=== PATIENT | male | born 1950 | race Caucasian/White ===

== ENCOUNTER 2017-09-26 10:26 | Inpatient (IN) | payer MEDICARE ==
[2017-09-26] VITALS (21 sets, daily range): BP systolic 92–150; BP diastolic 52–95; PULSE 72–154; RESP 16–24; TEMP 97.8–98.2; O2SAT 94–100
[~2017-09-26] VITALS: Ht 172.7 cm; Wt 83.1 kg
--- NOTE | 2017-09-26 10:51 | PD ---
HPI Chief Complaint: Cardiac Complaint Time Seen by Provider: 10:40 Travel History International Travel<30 days: No Contact w/Intl Traveler<30days: No Traveled to known affect area: No History of Present Illness HPI This patient went to his primary physician for routine follow-up. He was found to be in a flutter at 150 and was sent to the ER. He denies chest pain or shortness of breath. He complained of feeling lightheaded. He did not have syncope. He did not know that his heart rate was fast. He has no history of coronary artery disease or arrhythmia. Usually takes half of an aspirin daily but did not today. Symptoms severity is moderate. Duration is unclear. No alleviating factors. No exacerbating factors. PFSH Social History Alcohol Use: No Tobacco Use: No Substance Use: No Allergies-Medications (Allergen,Severity, Reaction): Coded Allergies: No Known Allergies (Unverified , 09/26/17) Reported Meds & Prescriptions Reported Meds & Active Scripts Active Reported Lisinopril 20 Mg Tab 20 Mg PO DAILY Simvastatin 20 Mg Tab 20 Mg PO DAILY Metformin (Metformin HCl) 500 Mg Tab 500 Mg PO BIDPC Lantus Solostar Pen Inj (Insulin Glargine) 300 Unit/3 Ml Pen 40 Units SQ Review of Systems General / Constitutional: No: Fever Eyes: No: Visual changes HENT: Positive: Lightheadedness, No: Headaches Cardiovascular: Positive: Irregular Rhythm, Tachycardia, No: Chest Pain or Discomfort Respiratory: No: Shortness of Breath Gastrointestinal: No: Abdominal Pain Genitourinary: No: Dysuria Musculoskeletal: No: Pain Skin: No Rash Neurologic: Positive: Dizziness Psychiatric: No: Depression Endocrine: No: Polydipsia Hematologic/Lymphatic: No: Easy Bruising Physical Exam Narrative GENERAL: Well-nourished, well-developed patient in no apparent distress. SKIN: Focused skin assessment reveals no rash and nodules. Skin is Warm and dry. HEAD: Atraumatic. Normocephalic. EYES: Pupils equal and round. No scleral icterus. No injection or drainage. ENT: No nasal bleeding or discharge. Mucous membranes pink and moist. NECK: Trachea midline. No JVD. CARDIOVASCULAR: Irregularly irregular rhythm. No murmur appreciated. Heart rate 150s RESPIRATORY: No accessory muscle use. Clear to auscultation. Breath sounds equal bilaterally. GASTROINTESTINAL: Abdomen soft, non-tender, nondistended. Hepatic and splenic margins not palpable. MUSCULOSKELETAL: No obvious deformities. No clubbing. No cyanosis. No edema. NEUROLOGICAL: Awake and alert. No obvious cranial nerve deficits. Motor grossly within normal limits. Normal speech. PSYCHIATRIC: Appropriate mood and affect; insight and judgment normal. Data Data Last Documented VS Vital Signs Date Time Temp Pulse Resp B/P (MAP) Pulse Ox O2 Delivery O2 Flow Rate FiO2 09/26/17 13:37 136 103/71 09/26/17 13:06 18 97 Room Air 09/26/17 10:50 97.8 Orders Orders Ecg Monitoring (09/26/17 10:46) Blood Pressure (09/26/17 10:46) Iv Access Insert/Monitor (09/26/17 10:46) Oximetry (09/26/17 10:46) Vital Signs (09/26/17 10:46) Diltiazem Inj (Cardizem Inj) (09/26/17 11:00) Sodium Chloride 0.9% Flush (Ns Flush) (09/26/17 11:00) Complete Blood Count With Diff (09/26/17 10:46) Basic Metabolic Panel (Bmp) (09/26/17 10:46) Troponin I (09/26/17 10:46) Ckmb (Isoenzyme) Profile (09/26/17 10:46) Prothrombin Time / Inr (Pt) (09/26/17 10:46) Act Partial Throm Time (Ptt) (09/26/17 10:46) Diltiazem Inj (Cardizem Inj) (09/26/17 12:00) Diltiazem Inj (Cardizem Inj) (09/26/17 13:15) Sodium Chlor 0.9% 1000 Ml Inj (Ns 1000 M (09/26/17 13:15) Admit To Inpatient (09/26/17 ) Vital Signs (Adult) Q4H (09/26/17 13:23) Italian Teacher / Telemetry .CONTINUOUS (09/26/17 13:23) Diet Heart Healthy (09/26/17 Lunch) Sodium Chlor 0.9% 1000 Ml Inj (Ns 1000 M (09/26/17 13:23) Sodium Chloride 0.9% Flush (Ns Flush) (09/26/17 13:30) Sodium Chloride 0.9% Flush (Ns Flush) (09/26/17 21:00) Ondansetron Inj (Zofran Inj) (09/26/17 14:00) Comprehensive Metabolic Panel (09/27/17 06:00) Complete Blood Count With Diff (09/27/17 06:00) Troponin I (09/26/17 17:00) Troponin I (09/26/17 23:00) Enoxaparin Inj (Lovenox Inj) (09/26/17 14:00) Scd Bilateral/Knee High SARAH.BID (09/26/17 13:23) Tramadol (Ultram) (09/26/17 14:00) Tramadol (Ultram) (09/26/17 14:00) Naloxone Inj (Narcan Inj) (09/26/17 13:30) Magnesium Hydroxide Liq (Milk Of Magnesi (09/26/17 14:00) Inpatient Certification (09/26/17 ) Consult Cardiology (09/26/17 ) Echo 2d Limited (09/26/17 13:26) (Hub Use Only)Inp Phy Cons/Ref (09/26/17 ) Admit Order (Ed Use Only) (09/26/17 13:51) Labs Laboratory Tests Test 09/26/17 10:45 White Blood Count 6.6 TH/MM3 Red Blood Count 4.39 MIL/MM3 Hemoglobin 14.0 GM/DL Hematocrit 42.2 % Mean Corpuscular Volume 96.2 FL Mean Corpuscular Hemoglobin 31.8 PG Mean Corpuscular Hemoglobin Concent 33.1 % Red Cell Distribution Width 13.7 % Platelet Count 206 TH/MM3 Mean Platelet Volume 8.3 FL Neutrophils (%) (Auto) 70.7 % Lymphocytes (%) (Auto) 18.4 % Monocytes (%) (Auto) 8.3 % Eosinophils (%) (Auto) 1.8 % Basophils (%) (Auto) 0.8 % Neutrophils # (Auto) 4.7 TH/MM3 Lymphocytes # (Auto) 1.2 TH/MM3 Monocytes # (Auto) 0.5 TH/MM3 Eosinophils # (Auto) 0.1 TH/MM3 Basophils # (Auto) 0.1 TH/MM3 CBC Comment DIFF FINAL Differential Comment Prothrombin Time 10.0 SEC Prothromb Time International Ratio 1.0 RATIO Activated Partial Thromboplast Time 25.7 SEC Blood Urea Nitrogen 24 MG/DL Creatinine 1.50 MG/DL Random Glucose 231 MG/DL Calcium Level 9.6 MG/DL Sodium Level 134 MEQ/L Potassium Level 5.0 MEQ/L Chloride Level 100 MEQ/L Carbon Dioxide Level 25.1 MEQ/L Anion Gap 9 MEQ/L Estimat Glomerular Filtration Rate 46 ML/MIN Total Creatine Kinase 68 U/L Troponin I LESS THAN 0.02 NG/ML MDM Medical Decision Making Medical Screen Exam Complete: Yes Emergency Medical Condition: Yes Medical Record Reviewed: Yes Differential Diagnosis Atrial flutter, atrial fibrillation, SVT, sinus tachycardia Narrative Course I have reviewed the patient's electronic medical record. Reviewed his paperwork sent from the doctor's office. This includes recent lab studies and an EKG IV placed Extended cardiac monitoring reveals atrial flutter at 150 I reviewed his EKG which shows atrial flutter at 150 I gave him 20 mg IV Cardizem for rate control Lab studies sent Lab studies are normal 1 Cardizem dose did not do anything to his rate Gave him a second 20 mg dose Brought his heart rate into the 130s Started Cardizem drip He will require admission for new onset of a flutter with RVR now on Cardizem drip I reviewed with the hospitalist Dr. Almonte Critical Care Narrative Aggregate critical care time was 36 minutes. Time to perform other separately billable procedures was not included in the critical care time. My time did not include minutes spent treating any other patients simultaneously or on activities that did not directly contribute to the patient's treatment. The services I provided to this patient were to treat and/or prevent clinically significant deterioration that could result in: Cardiopulmonary arrest, cardiogenic shock I provided critical care services requiring my management, as noted below: Chart data review, documentation time, medication orders and management, vital sign assessments/reviewing monitor data, ordering and reviewing lab tests, ordering and interpreting/reviewing x-rays and diagnostic studies, care of the patient and discussion of the patient with the admitting physicians. Diagnosis Primary Impression: New onset atrial flutter Additional Impressions: Atrial flutter with rapid ventricular response Diabetes 1.5, managed as type 1 Admitting Information Admitting Physician Requests: Vijay Pham MD Sep 26, 2017 10:51
[2017-09-26] MEDS ORDERED: SODIUM CHLORIDE 0.9% FLUSH 10 ML FLUSH IV FLUSH PRN ×2 (11:00→13:30)
[2017-09-26] MEDS ORDERED: DILTIAZEM HCL 25 MG/5 ML VIAL IV PUSH ONE (11:00)
[2017-09-26 11:17] LABS: AUTOMATED NEUTROPHIL # 4.7 TH/MM3 (1.8-7.7); BASOPHIL # 0.1 TH/MM3 (0-0.2); BASOPHIL % 0.8 % (0.0-2.0); EOSINOPHIL # 0.1 TH/MM3 (0-0.4); EOSINOPHIL % 1.8 % (0.0-4.0); HEMATOCRIT 42.2 % (39.0-51.0); LYMPH % 18.4 % (9.0-44.0); LYMPHOCYTE # 1.2 TH/MM3 (1.0-4.8); MEAN CELL VOLUME 96.2 FL (80.0-100.0); MEAN CORPUSCULAR HEMOGLOBIN 31.8 PG (27.0-34.0); MEAN CORPUSCULAR HGB CONC 33.1 % (32.0-36.0); MEAN PLATELET VOLUME 8.3 FL (7.0-11.0); MONO % 8.3 % (0.0-8.0); MONOCYTE # 0.5 TH/MM3 (0-0.9); NEUT % 70.7 % (16.0-70.0); PLATELET COUNT 206 TH/MM3 (150-450); RED BLOOD COUNT 4.39 MIL/MM3 (4.50-5.90); RED CELL DISTRIBUTION WIDTH 13.7 % (11.6-17.2); WHITE BLOOD COUNT 6.6 TH/MM3 (4.0-11.0)
[2017-09-26] MEDS ORDERED: METF500T PO (11:22)
[2017-09-26] MEDS ORDERED: SIMV20TA PO (11:22)
[2017-09-26] MEDS ORDERED: LANTINJ SQ (11:22)
[2017-09-26] MEDS ORDERED: LISI-515 PO (11:22)
[2017-09-26 11:29] LABS: CHLORIDE 100 MEQ/L (98-107); SODIUM (NA) 134 MEQ/L (136-145)
[2017-09-26 11:33] LABS: BICARBONATE 25.1 MEQ/L (21.0-32.0); CALCIUM 9.6 MG/DL (8.5-10.1); GLUCOSE,RANDOM 231 MG/DL (74-106)
[2017-09-26 11:37] LABS: BLOOD UREA NITROGEN 24 MG/DL (7-18); GLOMERULAR FILTRATION RATE 46 ML/MIN (>89)
[2017-09-26 11:41] LABS: TROPONIN I LESS THAN 0.02 NG/ML (0.02-0.05)
[2017-09-26] MEDS ORDERED: DILTIAZEM HCL 25 MG/5 ML VIAL IV ONE (12:00)
[2017-09-26] MEDS ORDERED: SODIUM CHLOR 0.9% 1000 ML INJ 1,000 ML IV ONE (13:15)
[2017-09-26] MEDS ORDERED: NALOXONE HCL 0.4 MG/ML AMP IV PUSH PRN (13:30)
[2017-09-26] MEDS: DILTIAZEM INJ 125 MG in SODIUM CHLORIDE 0.9% INJ 100 ML IV PRN ×2 (13:37→21:30)
[2017-09-26] MEDS ORDERED: MAGNESIUM HYDROXIDE SUSP 30 ML CUP PO PRN (14:00)
[2017-09-26] MEDS ORDERED: ENOXAPARIN SODIUM 40 MG/0.4 ML SYRINGE SQ SCH (14:00)
[2017-09-26] MEDS ORDERED: ONDANSETRON HCL 4 MG/2 ML VIAL IVP PRN (14:00)
[2017-09-26] MEDS ORDERED: traMADol HCL 50 MG TAB PO PRN ×2 (14:00)
[2017-09-26] MEDS: SODIUM CHLOR 0.9% 1000 ML INJ 1,000 ML IV SCH (14:21)
--- NOTE | 2017-09-26 15:59 | HHI.HP ---
[facility] Primary Care Physician Paolo Holm DO Admission Diagnosis new onset aflutter with RVR Diagnoses: Travel History International Travel<30 Days: No Contact w/Intl Traveler <30 Da: No Traveled to Known Affected Are: No History of Present Illness Mr. Pichardo is a 67-year-old male. He has not had any symptoms of was sent here by his primary care doctor after being found to have a heart rate of 150. EKG was done in the office and he was seen to be in atrial flutter. ER evaluation confirms heart rate in the 150s in atrial flutter. He has been given diltiazem bolus which dropped his heart rate down to the 130s. She is currently on IV diltiazem drip and continues to have heart rate in the 130s when seen. At baseline he has diabetes mellitus type 2. He has no prior history or known history of atrial fibrillation or atrial flutter. No other medical conditions. No fevers or illness. No exposure to stimulants such as excessive caffeine or cocaine. No heavy drinking. Review of Systems Constitutional: DENIES: Fever, Chills, Night Sweats Eyes: DENIES: Blurred vision, Diplopia, Eye inflammation, Eye pain Ears, nose, mouth, throat: DENIES: Hearing loss, Vertigo, Nasal discharge Respiratory: DENIES: Cough, Wheezing, Shortness of breath Cardiovascular: DENIES: Chest pain, Palpitations, Syncope Gastrointestinal: DENIES: Abdominal pain, Black stools, Bloody stools, Constipation Musculoskeletal: DENIES: Joint pain, Muscle aches, Stiffness, Joint Swelling Integumentary: DENIES: Abnormal pigmentation, Nail changes, Pruritus, Rash Hematologic/lymphatic: DENIES: Bruising, Lymphadenopathy Immunologic/allergic: DENIES: Eczema, Urticaria Neurologic: DENIES: Abnormal gait, Headache, Paresthesias Psychiatric: DENIES: Anxiety, Confusion, Hallucinations Past Family Social History Past Medical History Diabetes mellitus type 2 Past Surgical History Cholecystectomy Appendectomy Rx surgery Reported Medications Reported Meds & Active Scripts Active Reported Lisinopril 20 Mg Tab 20 Mg PO DAILY Simvastatin 20 Mg Tab 20 Mg PO DAILY Metformin (Metformin HCl) 500 Mg Tab 500 Mg PO BIDPC Lantus Solostar Pen Inj (Insulin Glargine) 300 Unit/3 Ml Pen 40 Units SQ Allergies: Coded Allergies: No Known Allergies (Unverified , 09/26/17) Active Ordered Medications Administered Medications Medications (Trade) Dose Ordered Sig/Chantelle Route PRN Reason Start Time Stop Time Status Last Admin Dose Admin Diltiazem HCl 125 mg/Sodium Chloride 125 ml @ 5 mls/hr TITRATE PRN IV Tachycardia 09/26/17 13:15 09/26/17 13:37 Sodium Chloride 1,000 ml @ 83 mls/hr Q12H3M IV 09/26/17 13:23 09/26/17 14:21 Enoxaparin Sodium (Lovenox Inj) 40 mg Q24H SQ 09/26/17 14:00 09/26/17 14:04 Family History Pancreatic cancer in mother Congestive heart failure and father Social History Occasional alcohol use No smoking No illicit drug abuse Physical Exam Vital Signs Vital Signs Date Time Temp Pulse Resp B/P (MAP) Pulse Ox O2 Delivery O2 Flow Rate FiO2 09/26/17 15:09 138 16 121/72 (88) 98 09/26/17 14:40 136 121/85 09/26/17 14:37 136 17 121/85 (97) 98 Room Air 09/26/17 14:10 134 120/75 09/26/17 14:08 134 18 120/75 (90) 96 Room Air 09/26/17 13:37 136 103/71 09/26/17 13:06 140 18 117/66 (83) 97 Room Air 09/26/17 12:35 94 18 107/52 (70) 100 Room Air 09/26/17 12:07 134 18 120/78 (92) 96 Room Air 09/26/17 11:41 136 18 119/73 (88) 96 Room Air 09/26/17 11:17 135 18 128/69 (88) 96 Room Air 09/26/17 11:09 Room Air 09/26/17 11:05 18 96 Room Air 09/26/17 11:05 120/72 (88) 09/26/17 11:04 154 18 120/72 (88) 96 Room Air 09/26/17 10:50 97.8 153 18 150/95 (113) 94 Physical Exam GENERAL: NAD, A&Ox3 HEAD: Normocephalic. NECK: Supple, trachea midline. No lymphadenopathy. EYES: No scleral icterus. No injection or drainage. CARDIOVASCULAR: Tachycardic rate and patterned rhythm without murmurs, gallops, or rubs. RESPIRATORY: Breath sounds equal bilaterally. No accessory muscle use. GASTROINTESTINAL: Abdomen soft, non-tender, nondistended. MUSCULOSKELETAL: No cyanosis, or edema. SKIN: Warm and dry. NEURO: No focal neurological deficitis. Laboratory Laboratory Tests Test 09/26/17 10:45 White Blood Count 6.6 Red Blood Count 4.39 Hemoglobin 14.0 Hematocrit 42.2 Mean Corpuscular Volume 96.2 Mean Corpuscular Hemoglobin 31.8 Mean Corpuscular Hemoglobin Concent 33.1 Red Cell Distribution Width 13.7 Platelet Count 206 Mean Platelet Volume 8.3 Neutrophils (%) (Auto) 70.7 Lymphocytes (%) (Auto) 18.4 Monocytes (%) (Auto) 8.3 Eosinophils (%) (Auto) 1.8 Basophils (%) (Auto) 0.8 Neutrophils # (Auto) 4.7 Lymphocytes # (Auto) 1.2 Monocytes # (Auto) 0.5 Eosinophils # (Auto) 0.1 Basophils # (Auto) 0.1 CBC Comment DIFF FINAL Differential Comment Prothrombin Time 10.0 Prothromb Time International Ratio 1.0 Activated Partial Thromboplast Time 25.7 Blood Urea Nitrogen 24 Creatinine 1.50 Random Glucose 231 Calcium Level 9.6 Sodium Level 134 Potassium Level 5.0 Chloride Level 100 Carbon Dioxide Level 25.1 Anion Gap 9 Estimat Glomerular Filtration Rate 46 Total Creatine Kinase 68 Troponin I LESS THAN 0.02 Result Diagram: 09/26/17 1045 09/26/17 1045 Caprini VTE Risk Assessment Caprini VTE Risk Assessment: Mod/High Risk (score >= 2) Caprini Risk Assessment Model Point Value = 1 Point Value = 2 Point Value = 3 Point Value = 5 Age 41-60 Minor surgery BMI > 25 kg/m2 Swollen legs Varicose veins or History of unexplained or recurrent spontaneous Oral contraceptives or hormone replacement Sepsis (< 1 month) Serious lung disease, including pneumonia (< 1 month) Abnormal pulmonary function Acute myocardial infarction Congestive heart failure (< 1 month) History of inflammatory bowel disease Medical patient at bed rest Age 61-74 Arthroscopic surgery Major open surgery (> 45 min) Laparoscopic surgery (> 45 min) Malignancy Confined to bed (> 72 hours) Immobilizing plaster cast Central venous access Age >= 75 History of VTE Family history of VTE Factor V Leiden Prothrombin [id number] Lupus anticoagulant Anticardiolipin antibodies Elevated serum homocysteine Heparin-induced thrombocytopenia Other congenital or acquired thrombophilia Stroke (< 1 month) Elective arthroplasty Hip, pelvis, or leg fracture Acute spinal cord injury (< 1 month) Prophylaxis Regimen Total Risk Factor Score Risk Level Prophylaxis Regimen 0-1 Low Early ambulation 2 Moderate Order ONE of the following: *Sequential Compression Device (SCD) *Heparin 5000 units SQ BID 3-4 Higher Order ONE of the following medications: *Heparin 5000 units SQ TID *Enoxaparin/Lovenox 40 mg SQ daily (WT < 150 kg, CrCl > 30 mL/min) *Enoxaparin/Lovenox 30 mg SQ daily (WT < 150 kg, CrCl > 10-29 mL/min) *Enoxaparin/Lovenox 30 mg SQ BID (WT < 150 kg, CrCl > 30 mL/min) AND/OR *Sequential Compression Device (SCD) 5 or more Highest Order ONE of the following medications: *Heparin 5000 units SQ TID (Preferred with Epidurals) *Enoxaparin/Lovenox 40 mg SQ daily (WT < 150 kg, CrCl > 30 mL/min) *Enoxaparin/Lovenox 30 mg SQ daily (WT < 150 kg, CrCl > 10-29 mL/min) *Enoxaparin/Lovenox 30 mg SQ BID (WT < 150 kg, CrCl > 30 mL/min) AND *Sequential Compression Device (SCD) Assessment and Plan Problem List: (1) Diabetes 1.5, managed as type 1 ICD Code: E10.9 - Type 1 diabetes mellitus without complications Status: Acute (2) New onset atrial flutter ICD Code: I48.92 - Unspecified atrial flutter Status: Acute (3) Atrial flutter with rapid ventricular response ICD Code: I48.92 - Unspecified atrial flutter Status: Acute Assessment and Plan 67-year-old male admitted secondary to a flutter with RVR Atrial flutter RVR Admit to ICU for diltiazem IV Continue Diltiazem IV for now Current neurology consulted Follow troponins Follow on telemetry Echocardiogram Diabetes mellitus type 2/1.5 Follow blood sugars Insulin sliding scale Diabetic diet DVT prophylaxis Lovenox Physician Certification 2 Midnight Certification Type: Admission for Inpatient Services Order for Inpatient Services The services are ordered in accordance with Medicare regulations or non- Medicare payer requirements, as applicable. In the case of services not specified as inpatient-only, they are appropriately provided as inpatient services in accordance with the 2-midnight benchmark. Estimated LOS (days): 3 days is the estimated time the patient will need to remain in the hospital, assuming treatment plan goals are met and no additional complications. Post-Hospital Plan: Home Mendez Almonte MD Sep 26, 2017 15:59
[2017-09-26] MEDS ORDERED: DEXTROSE 50% IN WATER 50 ML VIAL(D50) IV PUSH PRN (16:00)
[2017-09-26] MEDS ORDERED: GLUCAGON 1 MG/ML VIAL OTHER PRN (16:00)
[2017-09-26] MEDS: INSULIN ASPART SUPPLEMENTAL SCALE SQ SCH ×2 (17:00→21:28)
[2017-09-26] MEDS: SODIUM CHLORIDE 0.9% FLUSH 10 ML FLUSH IV FLUSH SCH (19:45)
[2017-09-27] VITALS (44 sets, daily range): BP systolic 84–142; BP diastolic 43–72; PULSE 62–136; RESP 10–33; TEMP 97.5–98.7; O2SAT 92–96
[2017-09-27] MEDS: SODIUM CHLOR 0.9% 1000 ML INJ 1,000 ML IV SCH ×2 (02:26→14:18)
[2017-09-27 05:13] LABS: BASOPHIL # 0.1 TH/MM3 (0-0.2); BASOPHIL % 0.8 % (0.0-2.0); EOSINOPHIL # 0.2 TH/MM3 (0-0.4); HEMATOCRIT 38.8 % (39.0-51.0); HEMOGLOBIN 12.9 GM/DL (13.0-17.0); LYMPH % 19.7 % (9.0-44.0); LYMPHOCYTE # 1.7 TH/MM3 (1.0-4.8); MEAN CELL VOLUME 95.8 FL (80.0-100.0); MEAN CORPUSCULAR HEMOGLOBIN 31.9 PG (27.0-34.0); MEAN CORPUSCULAR HGB CONC 33.3 % (32.0-36.0); MEAN PLATELET VOLUME 8.4 FL (7.0-11.0); MONO % 7.4 % (0.0-8.0); MONOCYTE # 0.6 TH/MM3 (0-0.9); NEUT % 70.1 % (16.0-70.0); PLATELET COUNT 199 TH/MM3 (150-450); RED BLOOD COUNT 4.05 MIL/MM3 (4.50-5.90); RED CELL DISTRIBUTION WIDTH 14.3 % (11.6-17.2); WHITE BLOOD COUNT 8.6 TH/MM3 (4.0-11.0)
[2017-09-27 05:23] LABS: CHLORIDE 106 MEQ/L (98-107); SODIUM (NA) 138 MEQ/L (136-145)
[2017-09-27 05:58] LABS: ALBUMIN 3.2 GM/DL (3.4-5.0); ALKALINE PHOSPHATASE 57 U/L (45-117); ALT (GPT) 18 U/L (12-78); AST (GOT) 12 U/L (15-37); BICARBONATE 24.9 MEQ/L (21.0-32.0); BLOOD UREA NITROGEN 24 MG/DL (7-18); CALCIUM 8.3 MG/DL (8.5-10.1); GLOMERULAR FILTRATION RATE 55 ML/MIN (>89); GLUCOSE,RANDOM 129 MG/DL (74-106); TOTAL BILIRUBIN ADULT 0.5 MG/DL (0.2-1.0); TOTAL PROTEIN 6.5 GM/DL (6.4-8.2)
--- NOTE | 2017-09-27 07:52 | PD.CONS ---
HPI Consult Requested By Primary Care Physician Paolo Holm DO History of Present Illness 67-year-old male with a past medical history of DM, HLD, HTN, CKD 3 who presented for new onset atrial flutter. The patient went to his routine every 3 month PCP visit yesterday. The pulse ox showed his heart rate was 150. An EKG showed atrial flutter with RVR. The patient has been completely asymptomatic. He denies any chest pain, shortness of breath, palpitations, lightheadedness, fatigue, exertional dyspnea, leg swelling. He was started on Cardizem drip which has been maximized overnight and heart rate remains around 120. Review of Systems Negative except as stated in history of present illness Past Family Social History Allergies: Coded Allergies: No Known Allergies (Unverified , 09/26/17) Past Medical History Diabetes mellitus Hypertension Hyperlipidemia Chronic kidney disease stage III Past Surgical History Cholecystectomy Appendectomy Reported Medications Reported Meds & Active Scripts Active Reported Lisinopril 20 Mg Tab 20 Mg PO DAILY Simvastatin 20 Mg Tab 20 Mg PO DAILY Metformin (Metformin HCl) 500 Mg Tab 500 Mg PO BIDPC Lantus Solostar Pen Inj (Insulin Glargine) 300 Unit/3 Ml Pen 40 Units SQ Active Ordered Medications Current Medications Medications (Trade) Dose Ordered Sig/Chantelle Route Start Time Stop Time Status Last Admin (NS Flush) 2 ml UNSCH PRN IV FLUSH 09/26/17 11:00 Diltiazem HCl 125 mg/Sodium Chloride 125 ml @ 5 mls/hr TITRATE PRN IV 09/26/17 13:15 09/26/17 21:30 Sodium Chloride 1,000 ml @ 83 mls/hr Q12H3M IV 09/26/17 13:23 09/27/17 02:26 (NS Flush) 2 ml UNSCH PRN IV FLUSH 09/26/17 13:30 (NS Flush) 2 ml BID IV FLUSH 09/26/17 21:00 (Zofran Inj) 4 mg Q6H PRN IVP 09/26/17 14:00 (Lovenox Inj) 40 mg Q24H SQ 09/26/17 14:00 09/26/17 14:04 (Ultram) 50 mg Q4H PRN PO 09/26/17 14:00 (Ultram) 100 mg Q4H PRN PO 09/26/17 14:00 (Narcan Inj) 0.4 mg UNSCH PRN IV PUSH 09/26/17 13:30 (Milk Of Magnesia Liq) 30 ml Q12HR PRN PO 09/26/17 14:00 (D50w (Vial) Inj) 50 ml UNSCH PRN IV PUSH 09/26/17 16:00 (Glucagon Inj) 1 mg UNSCH PRN OTHER 09/26/17 16:00 (NovoLOG SUPPLEMENTAL SCALE) 1 ACHS SLIDING SCALE SQ 09/26/17 17:00 09/26/17 21:28 Family History Pancreatic cancer in mother Congestive heart failure in father Social History Occasional alcohol use No smoking No illicit drug abuse Physical Exam Vital Signs Vital Signs Date Time Temp Pulse Resp B/P (MAP) Pulse Ox O2 Delivery O2 Flow Rate FiO2 09/27/17 06:00 132 16 99/66 (77) 09/27/17 06:00 133 09/27/17 05:00 118 22 100/64 (76) 09/27/17 04:12 97.7 134 24 95/65 (75) 96 09/27/17 04:00 132 09/27/17 04:00 133 95/65 09/27/17 03:00 134 92/58 09/27/17 02:00 135 09/27/17 02:00 135 107/62 09/27/17 02:00 136 21 107/62 (77) 09/27/17 01:00 104 20 93/56 (68) 09/27/17 00:07 85 09/27/17 00:00 98.6 90 21 92/54 (67) 95 09/27/17 00:00 90 92/54 09/26/17 23:00 90 21 109/52 (71) 09/26/17 22:00 82 09/26/17 22:00 82 23 92/55 (67) 09/26/17 21:31 76 21 100/53 (69) 09/26/17 21:30 85 100/53 09/26/17 21:02 72 23 92/53 (66) 09/26/17 21:00 76 92/53 09/26/17 20:00 98.2 90 23 92/56 (68) 09/26/17 20:00 90 09/26/17 20:00 90 92/56 09/26/17 19:00 136 24 128/71 (90) 98 09/26/17 18:39 138 128/79 09/26/17 18:00 122 09/26/17 17:52 97.9 92 17 118/68 (85) 97 09/26/17 17:38 09/26/17 17:03 110 18 112/64 (80) 97 Room Air 09/26/17 16:06 137 17 123/80 (94) 97 Room Air 09/26/17 15:09 138 16 121/72 (88) 98 09/26/17 14:40 136 121/85 09/26/17 14:37 136 17 121/85 (97) 98 Room Air 09/26/17 14:10 134 120/75 09/26/17 14:08 134 18 120/75 (90) 96 Room Air 09/26/17 13:37 136 103/71 09/26/17 13:06 140 18 117/66 (83) 97 Room Air 09/26/17 12:35 94 18 107/52 (70) 100 Room Air 09/26/17 12:07 134 18 120/78 (92) 96 Room Air 09/26/17 11:41 136 18 119/73 (88) 96 Room Air 09/26/17 11:17 135 18 128/69 (88) 96 Room Air 09/26/17 11:09 Room Air 09/26/17 11:05 18 96 Room Air 09/26/17 11:05 120/72 (88) 09/26/17 11:04 154 18 120/72 (88) 96 Room Air 09/26/17 10:50 97.8 153 18 150/95 (113) 94 Physical Exam GENERAL: Well-developed well-nourished. In no acute distress. NECK: No carotid bruits. No JVD. CARDIOVASCULAR: Tachycardic regular rate and rhythm. No murmur appreciated. RESPIRATORY: No accessory muscle use. Clear to auscultation. Breath sounds equal bilaterally. MUSCULOSKELETAL: No clubbing or cyanosis. No edema. NEUROLOGICAL: Awake and alert. Normal speech. Laboratory Laboratory Tests Test 09/26/17 10:45 09/26/17 18:15 09/26/17 22:30 09/27/17 04:20 White Blood Count 6.6 8.6 Red Blood Count 4.39 4.05 Hemoglobin 14.0 12.9 Hematocrit 42.2 38.8 Mean Corpuscular Volume 96.2 95.8 Mean Corpuscular Hemoglobin 31.8 31.9 Mean Corpuscular Hemoglobin Concent 33.1 33.3 Red Cell Distribution Width 13.7 14.3 Platelet Count 206 199 Mean Platelet Volume 8.3 8.4 Neutrophils (%) (Auto) 70.7 70.1 Lymphocytes (%) (Auto) 18.4 19.7 Monocytes (%) (Auto) 8.3 7.4 Eosinophils (%) (Auto) 1.8 2.0 Basophils (%) (Auto) 0.8 0.8 Neutrophils # (Auto) 4.7 6.0 Lymphocytes # (Auto) 1.2 1.7 Monocytes # (Auto) 0.5 0.6 Eosinophils # (Auto) 0.1 0.2 Basophils # (Auto) 0.1 0.1 CBC Comment DIFF FINAL DIFF FINAL Differential Comment Prothrombin Time 10.0 Prothromb Time International Ratio 1.0 Activated Partial Thromboplast Time 25.7 Blood Urea Nitrogen 24 24 Creatinine 1.50 1.30 Random Glucose 231 129 Calcium Level 9.6 8.3 Sodium Level 134 138 Potassium Level 5.0 4.7 Chloride Level 100 106 Carbon Dioxide Level 25.1 24.9 Anion Gap 9 7 Estimat Glomerular Filtration Rate 46 55 Total Creatine Kinase 68 Troponin I LESS THAN 0.02 LESS THAN 0.02 LESS THAN 0.02 Total Protein 6.5 Albumin 3.2 Alkaline Phosphatase 57 Aspartate Amino Transf (AST/SGOT) 12 Alanine Aminotransferase (ALT/SGPT) 18 Total Bilirubin 0.5 Result Diagram: 09/27/17 0420 09/27/17 0420 Assessment and Plan Assessment and Plan 67-year-old male with a past medical history of DM, HLD, HTN, CKD 3 who presented for new onset atrial flutter. The patient went to his routine every 3 month PCP visit and the pulse ox showed his heart rate was 150. An EKG showed atrial flutter with RVR. The patient has been completely asymptomatic. New-onset atrial flutter with RVR: Change Cardizem GTT to oral Cardizem every 6 hours. IV digoxin loading today, digoxin level in a.m., start oral digoxin tomorrow. Echocardiogram. Chadsvasc 3 for age, diabetes, and hypertension, recommend initiating anticoagulation. Discussed Condition With Pt, RN, Cory Guzman Sep 27, 2017 07:52
[2017-09-27] MEDS: SODIUM CHLORIDE 0.9% FLUSH 10 ML FLUSH IV FLUSH SCH ×2 (08:07→19:38)
[2017-09-27] MEDS: APIXABAN 5 MG TABLET PO SCH ×2 (08:07→21:28)
[2017-09-27] MEDS: DILTIAZEM HCL 60 MG TAB PO SCH ×4 (08:07→23:17)
[2017-09-27] MEDS: DIGOXIN 0.5 MG/2 ML VIAL IV PUSH SCH ×2 (08:08→12:00)
[2017-09-27] MEDS: INSULIN ASPART SUPPLEMENTAL SCALE SQ SCH ×4 (08:18→21:28)
--- NOTE | 2017-09-27 11:43 | ECHRPT ---
Indication: atrial fib CONCLUSIONS The left ventricular systolic function is hsaimtdr-gt-nrwqjwz reduced with an estimated ejection fra ction in the range of 35-40%. Wall thickness is normal. Normal left ventricular size. Trace mitral valve regurgitation. Aortic valve sclerosis is present. There is mild tricuspid valve regurgitation. The estimated pulmonary arterial pressure is 36.6 mmHg. BP: / HR: Rhythm: Atrial fibrillation MEASUREMENTS (Male / Female) Normal Values Technical Quality:Good 2D ECHO LV Diastolic Diameter PLAX 4.2 cm 4.2 - 5.9 / 3.9 - 5.3 cm LV Systolic Diameter PLAX 3.1 cm IVS Diastolic Thickness 0.9 cm 0.6 - 1.0 / 0.6 - 0.9 cm LVPW Diastolic Thickness 0.9 cm 0.6 - 1.0 / 0.6 - 0.9 cm LV Relative Wall Thickness 0.4 RV Internal Dim ED PLAX 3.2 cm LVOT Diameter 2.0 cm LA Systolic Diameter LX 4.0 cm 3.0 - 4.0 / 2.7 - 3.8 cm LV Ejection Fraction MOD BP 43.0 % >= 55 % LV Ejection Fraction MOD 4C 36.6 % LV Ejection Fraction 4C AL 37.4 % LV Ejection Fraction MOD 2C 51.1 % LV Ejection Fraction 2C AL 50.7 % M-MODE Aortic Root Diameter MM 2.5 cm LA Systolic Diameter MM 3.6 cm LA Ao Ratio MM 1.4 AV Cusp Separation MM 2.0 cm DOPPLER AV Peak Velocity 122.0 cm/s AV Peak Gradient 6.0 mmHg LVOT Peak Velocity 76.5 cm/s LVOT Peak Gradient 2.3 mmHg AV Area Cont Eq pk 2.0 cm MV Area PHT 4.7 cm LV E' Septal Velocity 3.5 cm/s TR Peak Velocity 258.0 cm/s TR Peak Gradient 26.6 mmHg Right Atrial Pressure 10.0 mmHg Pulmonary Artery Systolic Pressu 36.6 mmHg Right Ventricular Systolic Press 36.6 mmHg PV Peak Velocity 59.7 cm/s PV Peak Gradient 1.4 mmHg FINDINGS LEFT VENTRICLE The left ventricular systolic function is ebmfsaoi-mg-pchewbx reduced with an estimated ejection fra ction in the range of 35-40%. Wall thickness is normal. Normal left ventricular size. RIGHT VENTRICLE Normal right ventricular size and systolic function. LEFT ATRIUM The left atrial size is normal. RIGHT ATRIUM The right atrial size is normal. ATRIAL SEPTUM Normal atrial septal thickness without atrial level shunting by limited color doppler interrogation. AORTA The aortic root and proximal ascending aorta are normal in size on limited imaging. MITRAL VALVE Structurally normal mitral valve. Trace mitral valve regurgitation. AORTIC VALVE Trileaflet aortic valve. Aortic valve sclerosis is present. TRICUSPID VALVE Structurally normal tricuspid valve. There is mild tricuspid valve regurgitation. The estimated pulmonary arterial pressure is 36.6 mmHg. PULMONARY VALVE No pulmonary valve regurgitation or stenosis. VESSELS The inferior vena cava is normal in size. PERICARDIUM No pericardial effusion. Femi Cai MD, FACC (Electronically Signed) Final Date:27 September 2017 11:42
--- NOTE | 2017-09-27 15:31 | HHI.PR ---
Subjective Remarks Not much response to diltiazem overnight. Digoxin is out of this morning by cardiology team. When I see the patient is afternoon he's having rate controlled but still remains in atrial flutter. She remains asymptomatic. Objective Vital Signs Date Time Temp Pulse Resp B/P (MAP) Pulse Ox O2 Delivery O2 Flow Rate FiO2 09/27/17 14:47 62 26 101/54 (70) 95 09/27/17 14:44 62 26 94/52 (66) 95 09/27/17 14:38 64 31 84/43 (57) 94 09/27/17 14:30 62 33 94/48 (63) 93 09/27/17 14:00 66 09/27/17 14:00 66 21 100/49 (66) 94 09/27/17 13:00 84 26 110/66 (81) 09/27/17 12:00 90 09/27/17 12:00 97.8 96 23 122/56 (78) 94 09/27/17 11:00 74 24 99/67 (78) 95 09/27/17 10:00 66 18 93/57 (69) 96 09/27/17 10:00 64 09/27/17 09:47 74 19 86/51 (63) 95 09/27/17 09:32 70 20 84/56 (65) 95 09/27/17 09:21 76 21 92/48 (63) 92 09/27/17 09:17 84 24 97/47 (64) 94 09/27/17 09:10 98 19 103/53 (70) 93 09/27/17 09:06 90 30 88/59 (69) 09/27/17 09:00 120 09/27/17 08:45 132 20 111/64 (80) 09/27/17 08:15 68 21 105/66 (79) 09/27/17 08:13 70 21 114/72 (86) 09/27/17 08:00 98.0 132 10 106/70 (82) 09/27/17 08:00 132 09/27/17 07:00 132 09/27/17 07:00 132 16 106/66 (79) 09/27/17 06:00 132 16 99/66 (77) 09/27/17 06:00 133 09/27/17 05:00 118 22 100/64 (76) 09/27/17 04:12 97.7 134 24 95/65 (75) 96 09/27/17 04:00 132 09/27/17 04:00 133 95/65 09/27/17 03:00 134 92/58 09/27/17 02:00 135 09/27/17 02:00 135 107/62 09/27/17 02:00 136 21 107/62 (77) 09/27/17 01:00 104 20 93/56 (68) 09/27/17 00:07 85 09/27/17 00:00 98.6 90 21 92/54 (67) 95 09/27/17 00:00 90 92/54 09/26/17 23:00 90 21 109/52 (71) 09/26/17 22:00 82 09/26/17 22:00 82 23 92/55 (67) 09/26/17 21:31 76 21 100/53 (69) 09/26/17 21:30 85 100/53 09/26/17 21:02 72 23 92/53 (66) 09/26/17 21:00 76 92/53 09/26/17 20:00 98.2 90 23 92/56 (68) 09/26/17 20:00 90 09/26/17 20:00 90 92/56 09/26/17 19:00 136 24 128/71 (90) 98 09/26/17 18:39 138 128/79 09/26/17 18:00 122 09/26/17 17:52 97.9 92 17 118/68 (85) 97 09/26/17 17:38 09/26/17 17:03 110 18 112/64 (80) 97 Room Air 09/26/17 16:06 137 17 123/80 (94) 97 Room Air I/O 09/26/17 09/26/17 09/26/17 09/27/17 09/27/17 09/27/17 07:00 15:00 23:00 07:00 15:00 23:00 Intake Total 1000 ml 445 ml 1000 ml 200 ml Output Total 600 ml 1300 ml Balance 1000 ml -155 ml 1000 ml -1100 ml Intake Oral 320 ml 200 ml IV Total 1000 ml 125 ml 1000 ml Output Urine Total 600 ml 1300 ml # Voids 1 3 # Bowel Movements 0 Result Diagram: 09/27/1741909/27/17419 Objective Remarks GENERAL: NAD, A&Ox3 HEAD: Normocephalic. NECK: Supple, trachea midline. No lymphadenopathy. EYES: No scleral icterus. No injection or drainage. CARDIOVASCULAR: Irregularly irregular rhythm without murmurs, gallops, or rubs. RESPIRATORY: Breath sounds equal bilaterally. No accessory muscle use. GASTROINTESTINAL: Abdomen soft, non-tender, nondistended. MUSCULOSKELETAL: No cyanosis, or edema. SKIN: Warm and dry. NEURO: No focal neurological deficitis. A/P Problem List: (1) Atrial flutter with rapid ventricular response ICD Code: I48.92 - Unspecified atrial flutter Status: Acute (2) Diabetes 1.5, managed as type 1 ICD Code: E10.9 - Type 1 diabetes mellitus without complications Status: Acute (3) New onset atrial flutter ICD Code: I48.92 - Unspecified atrial flutter Status: Acute Assessment and Plan 67-year-old male admitted secondary to a flutter with RVR Atrial flutter RVR Weaned to by mouth diltiazem Digoxin loading started Patient is now rate controlled Cardiology following Troponin evaluation within normal limits. Follow on telemetry Echocardiogram shows an EF of 35-40%. Diabetes mellitus type 2/1.5 Follow blood sugars Insulin sliding scale Diabetic diet DVT prophylaxis Mendez Phoenix MD Sep 27, 2017 15:31
[2017-09-27] MEDS ORDERED: DIGOXIN 0.5 MG/2 ML VIAL IV PUSH ONE (19:15)
--- NOTE | 2017-09-27 20:39 | EKG ---
Date Performed: 09/26/2017 Time Performed: 10:28:39 PTAGE: 67 years EKG: ATRIAL FLUTTER/TACHYCARDIA WITH RAPID VENTRICULAR RESPONSE ABNORMAL ECG NO PREVIOUS TRACING DOCTOR: Linnette Woods Interpretating Date/Time 09/27/2017 20:38:55
[2017-09-28] VITALS (14 sets, daily range): BP systolic 116–141; BP diastolic 62–89; PULSE 66–138; RESP 11–28; TEMP 97.9–98; O2SAT 94–95
[2017-09-28] MEDS: SODIUM CHLOR 0.9% 1000 ML INJ 1,000 ML IV SCH ×2 (01:43→13:35)
[2017-09-28] MEDS: DILTIAZEM HCL 60 MG TAB PO SCH ×3 (04:37→18:00)
[2017-09-28 05:46] LABS: BASOPHIL # 0.1 TH/MM3 (0-0.2); BASOPHIL % 0.9 % (0.0-2.0); EOSINOPHIL # 0.2 TH/MM3 (0-0.4); EOSINOPHIL % 1.9 % (0.0-4.0); HEMATOCRIT 37.2 % (39.0-51.0); HEMOGLOBIN 13.1 GM/DL (13.0-17.0); LYMPH % 17.5 % (9.0-44.0); LYMPHOCYTE # 1.4 TH/MM3 (1.0-4.8); MEAN CELL VOLUME 95.6 FL (80.0-100.0); MEAN CORPUSCULAR HEMOGLOBIN 33.7 PG (27.0-34.0); MEAN CORPUSCULAR HGB CONC 35.2 % (32.0-36.0); MEAN PLATELET VOLUME 8.3 FL (7.0-11.0); MONO % 6.7 % (0.0-8.0); MONOCYTE # 0.5 TH/MM3 (0-0.9); PLATELET COUNT 173 TH/MM3 (150-450); RED BLOOD COUNT 3.89 MIL/MM3 (4.50-5.90); RED CELL DISTRIBUTION WIDTH 14.5 % (11.6-17.2); WHITE BLOOD COUNT 8.2 TH/MM3 (4.0-11.0)
[2017-09-28 05:55] LABS: CHLORIDE 106 MEQ/L (98-107); SODIUM (NA) 138 MEQ/L (136-145)
[2017-09-28 06:01] LABS: BICARBONATE 25.1 MEQ/L (21.0-32.0); BLOOD UREA NITROGEN 19 MG/DL (7-18); GLUCOSE,RANDOM 153 MG/DL (74-106)
[2017-09-28 06:04] LABS: ALT (GPT) 14 U/L (12-78); AST (GOT) 15 U/L (15-37); GLOMERULAR FILTRATION RATE 55 ML/MIN (>89)
[2017-09-28 06:05] LABS: TOTAL BILIRUBIN ADULT 0.5 MG/DL (0.2-1.0); TOTAL PROTEIN 6.4 GM/DL (6.4-8.2)
[2017-09-28 06:07] LABS: ALKALINE PHOSPHATASE 53 U/L (45-117)
[2017-09-28 06:42] LABS: DIGOXIN 1.4 NG/ML (0.8-2.0)
[2017-09-28] MEDS: INSULIN ASPART SUPPLEMENTAL SCALE SQ SCH ×4 (08:00→22:04)
--- NOTE | 2017-09-28 08:19 | PD.CARD.PN ---
Subjective Subjective Remarks Heart rate currently 130s. Heart rate was better controlled yesterday afternoon on 60 mg Cardizem, however BP was down to 84/43 and Cardizem was decreased to 30 mg. Patient remains asymptomatic. (Cory Montesinos) Objective Medications Current Medications Medications (Trade) Dose Ordered Sig/Chantelle Route Start Time Stop Time Status Last Admin (NS Flush) 2 ml UNSCH PRN IV FLUSH 09/26/17 11:00 Diltiazem HCl 125 mg/Sodium Chloride 125 ml @ 5 mls/hr TITRATE PRN IV 09/26/17 13:15 09/26/17 21:30 Sodium Chloride 1,000 ml @ 83 mls/hr Q12H3M IV 09/26/17 13:23 09/28/17 01:43 (NS Flush) 2 ml UNSCH PRN IV FLUSH 09/26/17 13:30 (NS Flush) 2 ml BID IV FLUSH 09/26/17 21:00 09/27/17 19:38 (Zofran Inj) 4 mg Q6H PRN IVP 09/26/17 14:00 (Ultram) 50 mg Q4H PRN PO 09/26/17 14:00 (Ultram) 100 mg Q4H PRN PO 09/26/17 14:00 (Narcan Inj) 0.4 mg UNSCH PRN IV PUSH 09/26/17 13:30 (Milk Of Magnesia Liq) 30 ml Q12HR PRN PO 09/26/17 14:00 (D50w (Vial) Inj) 50 ml UNSCH PRN IV PUSH 09/26/17 16:00 (Glucagon Inj) 1 mg UNSCH PRN OTHER 09/26/17 16:00 (NovoLOG SUPPLEMENTAL SCALE) 1 ACHS SLIDING SCALE SQ 09/26/17 17:00 09/27/17 21:28 (Lanoxin) 0.125 mg DAILY PO 09/28/17 09:00 (Eliquis) 5 mg BID PO 09/27/17 09:00 09/27/17 21:28 (Cardizem) 30 mg Q6HR PO 09/27/17 18:00 09/28/17 04:37 Vital Signs / I&O Vital Signs Date Time Temp Pulse Resp B/P (MAP) Pulse Ox O2 Delivery O2 Flow Rate FiO2 09/28/17 04:31 97.9 132 20 117/68 (84) 94 09/28/17 00:00 66 16 09/27/17 23:17 97.8 104 20 111/58 (75) 95 09/27/17 21:16 88 09/27/17 21:00 88 22 09/27/17 20:00 118 26 09/27/17 19:41 134 09/27/17 19:40 72 22 101/53 (69) 09/27/17 19:37 97.5 134 27 119/70 (86) 95 09/27/17 19:17 134 29 119/67 (84) 09/27/17 19:02 134 25 108/60 (76) 09/27/17 18:49 132 32 113/63 (80) 95 09/27/17 18:32 132 22 119/60 (79) 95 09/27/17 18:17 80 25 108/58 (75) 95 09/27/17 18:02 132 29 142/71 (94) 96 09/27/17 17:00 82 18 119/60 (79) 94 09/27/17 16:00 98.7 76 24 99/61 (74) 94 09/27/17 14:47 62 26 101/54 (70) 95 09/27/17 14:44 62 26 94/52 (66) 95 09/27/17 14:38 64 31 84/43 (57) 94 09/27/17 14:30 62 33 94/48 (63) 93 09/27/17 14:00 66 09/27/17 14:00 66 21 100/49 (66) 94 09/27/17 13:00 84 26 110/66 (81) 09/27/17 12:00 90 09/27/17 12:00 97.8 96 23 122/56 (78) 94 09/27/17 11:00 74 24 99/67 (78) 95 09/27/17 10:00 66 18 93/57 (69) 96 09/27/17 10:00 64 09/27/17 09:47 74 19 86/51 (63) 95 09/27/17 09:32 70 20 84/56 (65) 95 09/27/17 09:21 76 21 92/48 (63) 92 09/27/17 09:17 84 24 97/47 (64) 94 09/27/17 09:10 98 19 103/53 (70) 93 09/27/17 09:06 90 30 88/59 (69) 09/27/17 09:00 120 09/27/17 08:45 132 20 111/64 (80) 09/27/17 08:15 68 21 105/66 (79) 09/27/17 08:13 70 21 114/72 (86) I/O 09/27/17 09/27/17 09/27/17 09/28/17 09/28/17 09/28/17 07:00 15:00 23:00 07:00 15:00 23:00 Intake Total 1000 ml 200 ml 960 ml 2200 ml Output Total 1300 ml 1400 ml 1350 ml Balance 1000 ml -1100 ml -440 ml 850 ml Intake Oral 200 ml 960 ml 200 ml IV Total 1000 ml 2000 ml Output Urine Total 1300 ml 1400 ml 1350 ml # Voids 3 2 1 # Bowel Movements 0 0 0 Physical Exam GENERAL: Well-developed well-nourished. In no acute distress. NECK: No carotid bruits. No JVD. CARDIOVASCULAR: Tachycardic irregular rate and rhythm. No murmur appreciated. RESPIRATORY: No accessory muscle use. Clear to auscultation. Breath sounds equal bilaterally. MUSCULOSKELETAL: No clubbing or cyanosis. No edema. NEUROLOGICAL: Awake and alert. Normal speech. Laboratory Laboratory Tests Test 09/28/17 05:10 White Blood Count 8.2 TH/MM3 Red Blood Count 3.89 MIL/MM3 Hemoglobin 13.1 GM/DL Hematocrit 37.2 % Mean Corpuscular Volume 95.6 FL Mean Corpuscular Hemoglobin 33.7 PG Mean Corpuscular Hemoglobin Concent 35.2 % Red Cell Distribution Width 14.5 % Platelet Count 173 TH/MM3 Mean Platelet Volume 8.3 FL Neutrophils (%) (Auto) 73.0 % Lymphocytes (%) (Auto) 17.5 % Monocytes (%) (Auto) 6.7 % Eosinophils (%) (Auto) 1.9 % Basophils (%) (Auto) 0.9 % Neutrophils # (Auto) 6.0 TH/MM3 Lymphocytes # (Auto) 1.4 TH/MM3 Monocytes # (Auto) 0.5 TH/MM3 Eosinophils # (Auto) 0.2 TH/MM3 Basophils # (Auto) 0.1 TH/MM3 CBC Comment DIFF FINAL Differential Comment Blood Urea Nitrogen 19 MG/DL Creatinine 1.30 MG/DL Random Glucose 153 MG/DL Total Protein 6.4 GM/DL Albumin 3.0 GM/DL Calcium Level 8.0 MG/DL Alkaline Phosphatase 53 U/L Aspartate Amino Transf (AST/SGOT) 15 U/L Alanine Aminotransferase (ALT/SGPT) 14 U/L Total Bilirubin 0.5 MG/DL Sodium Level 138 MEQ/L Potassium Level 4.5 MEQ/L Chloride Level 106 MEQ/L Carbon Dioxide Level 25.1 MEQ/L Anion Gap 7 MEQ/L Estimat Glomerular Filtration Rate 55 ML/MIN Digoxin Level 1.4 NG/ML (Cory Montesinos) Assessment and Plan Assessment and Plan 67-year-old male with a past medical history of DM, HLD, HTN, CKD 3 who presented for new onset atrial flutter. The patient went to his routine every 3 month PCP visit and the pulse ox showed his heart rate was 150. An EKG showed atrial flutter with RVR. The patient has been completely asymptomatic. New-onset atrial flutter with RVR: On oral diltiazem and digoxin. Chadsvasc 3 for age, diabetes, and hypertension, recommend initiating anticoagulation. At this point, the patient would most benefit from ablation, however no electrophysiology is currently available in [facility], would consider transfer for ablation Cardiomyopathy: EF 35-40%. New-onset, suspect rate related. No clinical signs of CHF. 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 He would be a good candidate for afib ablation hold oral anticoagulation start lovenox instead consider YESENIA/DCC transfer to [facility] main can coordinate EP eval as outpatient unless unable to convert NPO p MN (Femi Cai MD) Cory Montesinos Sep 28, 2017 08:19 Femi Cai MD Sep 28, 2017 09:08
[2017-09-28] MEDS ORDERED: DIGOXIN 0.125 MG TAB PO SCH (09:00)
[2017-09-28] MEDS: APIXABAN 5 MG TABLET PO SCH (09:00)
[2017-09-28] MEDS: SODIUM CHLORIDE 0.9% FLUSH 10 ML FLUSH IV FLUSH SCH ×2 (09:00→22:08)
[2017-09-28] MEDS: ENOXAPARIN SODIUM 80 MG/0.8 ML SYRINGE SQ SCH ×2 (10:00→22:01)
--- NOTE | 2017-09-28 15:04 | HHI.PR ---
Subjective Remarks Atrial flutter has returned. Heart rate is approximately 130 bpm. Patient has no new complaints. Case discussed with cardiology. Attempt at cardioversion is planned. Patient will transfer to [facility] for this. Objective Vital Signs Date Time Temp Pulse Resp B/P (MAP) Pulse Ox O2 Delivery O2 Flow Rate FiO2 09/28/17 12:08 136 19 129/89 (102) 09/28/17 12:00 136 28 09/28/17 10:00 134 22 09/28/17 09:00 132 18 09/28/17 08:00 130 131/73 (92) 09/28/17 08:00 90 09/28/17 04:31 97.9 132 20 117/68 (84) 94 09/28/17 00:00 66 16 09/27/17 23:17 97.8 104 20 111/58 (75) 95 09/27/17 21:16 88 09/27/17 21:00 88 22 09/27/17 20:00 118 26 09/27/17 19:41 134 09/27/17 19:40 72 22 101/53 (69) 09/27/17 19:37 97.5 134 27 119/70 (86) 95 09/27/17 19:17 134 29 119/67 (84) 09/27/17 19:02 134 25 108/60 (76) 09/27/17 18:49 132 32 113/63 (80) 95 09/27/17 18:32 132 22 119/60 (79) 95 09/27/17 18:17 80 25 108/58 (75) 95 09/27/17 18:02 132 29 142/71 (94) 96 09/27/17 17:00 82 18 119/60 (79) 94 09/27/17 16:00 98.7 76 24 99/61 (74) 94 I/O 09/27/17 09/27/17 09/27/17 09/28/17 09/28/17 09/28/17 07:00 15:00 23:00 07:00 15:00 23:00 Intake Total 1000 ml 200 ml 960 ml 2200 ml Output Total 1300 ml 1400 ml 1350 ml Balance 1000 ml -1100 ml -440 ml 850 ml Intake Oral 200 ml 960 ml 200 ml IV Total 1000 ml 2000 ml Output Urine Total 1300 ml 1400 ml 1350 ml # Voids 3 2 1 # Bowel Movements 0 0 0 Result Diagram: 09/28/17 0510 09/28/17 0510 Objective Remarks GENERAL: NAD, A&Ox3 HEAD: Normocephalic. NECK: Supple, trachea midline. No lymphadenopathy. EYES: No scleral icterus. No injection or drainage. CARDIOVASCULAR: Irregularly irregular rhythm without murmurs, gallops, or rubs. RESPIRATORY: Breath sounds equal bilaterally. No accessory muscle use. GASTROINTESTINAL: Abdomen soft, non-tender, nondistended. MUSCULOSKELETAL: No cyanosis, or edema. SKIN: Warm and dry. NEURO: No focal neurological deficitis. A/P Problem List: (1) Atrial flutter with rapid ventricular response ICD Code: I48.92 - Unspecified atrial flutter Status: Acute (2) Diabetes 1.5, managed as type 1 ICD Code: E10.9 - Type 1 diabetes mellitus without complications Status: Acute (3) New onset atrial flutter ICD Code: I48.92 - Unspecified atrial flutter Status: Acute Assessment and Plan 67-year-old male admitted secondary to a flutter with RVR Transfer to [facility] for cardioversion procedure. Continue to monitor on telemetry. Labs reviewed. Electrolytes remained stable. Continue to monitor labs. Labs ordered for further monitoring. Check coag panel in morning. Atrial flutter RVR Weaned to by mouth diltiazem Digoxin loading started Patient is now rate controlled Cardiology following Troponin evaluation within normal limits. Follow on telemetry Echocardiogram shows an EF of 35-40%. Diabetes mellitus type 2/1.5 Follow blood sugars Insulin sliding scale Diabetic diet DVT prophylaxis Mendez Phoenix MD Sep 28, 2017 15:04
[2017-09-28] MEDS ORDERED: DILTIAZEM HCL 25 MG/5 ML VIAL IV ONE (22:45)
[2017-09-29] VITALS (16 sets, daily range): BP systolic 119–144; BP diastolic 68–85; PULSE 78–132; RESP 14–20; TEMP 97.9–98.6; O2SAT 95–97
[2017-09-29] MEDS: DILTIAZEM HCL 60 MG TAB PO SCH ×3 (00:17→18:12)
[2017-09-29] MEDS ORDERED: CHLORHEXIDINE GLUCONATE 2 % 1 PACK (2 CLOTHS) TOPICAL PRN (06:45)
[2017-09-29] MEDS ORDERED: POVIDONE IODINE 5% (ANTISEPSIS KIT) 4 APPLICATIONS EACH NARE PRN (06:45)
[2017-09-29] MEDS ORDERED: SODIUM CHLORID 0.9% 500 ML IV PRN (06:45)
[2017-09-29] MEDS ORDERED: LACTATED RINGER'S 1000 ML IV PRN (06:45)
[2017-09-29 06:48] LABS: AUTOMATED NEUTROPHIL # 6.5 TH/MM3 (1.8-7.7); BASOPHIL # 0.1 TH/MM3 (0-0.2); BASOPHIL % 0.6 % (0.0-2.0); EOSINOPHIL # 0.1 TH/MM3 (0-0.4); EOSINOPHIL % 1.6 % (0.0-4.0); HEMATOCRIT 41.7 % (39.0-51.0); HEMOGLOBIN 14.6 GM/DL (13.0-17.0); LYMPH % 16.8 % (9.0-44.0); LYMPHOCYTE # 1.5 TH/MM3 (1.0-4.8); MEAN CELL VOLUME 95.3 FL (80.0-100.0); MEAN CORPUSCULAR HEMOGLOBIN 33.3 PG (27.0-34.0); MEAN CORPUSCULAR HGB CONC 34.9 % (32.0-36.0); MEAN PLATELET VOLUME 8.3 FL (7.0-11.0); MONO % 7.6 % (0.0-8.0); MONOCYTE # 0.7 TH/MM3 (0-0.9); NEUT % 73.4 % (16.0-70.0); PLATELET COUNT 195 TH/MM3 (150-450); RED BLOOD COUNT 4.38 MIL/MM3 (4.50-5.90); RED CELL DISTRIBUTION WIDTH 14.3 % (11.6-17.2); WHITE BLOOD COUNT 8.8 TH/MM3 (4.0-11.0)
[2017-09-29 06:52] LABS: INTERNATIONAL NORMALIZED RATIO 1.1 RATIO; PROTHROMBIN TIME - PATIENT 10.9 SEC (9.8-11.6)
[2017-09-29 07:09] LABS: ALBUMIN 3.7 GM/DL (3.4-5.0); AST (GOT) 22 U/L (15-37); BICARBONATE 23.1 MEQ/L (21.0-32.0); BLOOD UREA NITROGEN 16 MG/DL (7-18); CALCIUM 9.3 MG/DL (8.5-10.1); CHLORIDE 101 MEQ/L (98-107); CREATININE 1.22 MG/DL (0.60-1.30); GLOMERULAR FILTRATION RATE 59 ML/MIN (>89); GLUCOSE,RANDOM 148 MG/DL (74-106); SODIUM (NA) 134 MEQ/L (136-145)
[2017-09-29 07:15] LABS: ALKALINE PHOSPHATASE 65 U/L (45-117); ALT (GPT) 25 U/L (12-78); TOTAL BILIRUBIN ADULT 0.8 MG/DL (0.2-1.0); TOTAL PROTEIN 7.1 GM/DL (6.4-8.2)
[2017-09-29] MEDS ORDERED: AMIODARONE HCL 150 MG/3 ML VIAL ONE (07:56)
[2017-09-29] MEDS ORDERED: AMIODARONE INJ 150 MG in DEXTROSE 5% IN WATER 100ML INJ 97 ML IV ONE ×2 (07:56)
[2017-09-29] MEDS ORDERED: SODIUM CHLORIDE 0.9% FLUSH 10 ML FLUSH IVF PRN (08:00)
[2017-09-29] MEDS ORDERED: MISCELLANEOUS NURSING INFORMATION XX PRN (08:00)
--- NOTE | 2017-09-29 08:01 | PD.CARD.PN ---
Subjective Subjective Remarks no complaints Objective Medications Current Medications Medications (Trade) Dose Ordered Sig/Chantelle Route Start Time Stop Time Status Last Admin (NS Flush) 2 ml UNSCH PRN IV FLUSH 09/26/17 11:00 Diltiazem HCl 125 mg/Sodium Chloride 125 ml @ 5 mls/hr TITRATE PRN IV 09/26/17 13:15 09/26/17 21:30 Sodium Chloride 1,000 ml @ 83 mls/hr Q12H3M IV 09/26/17 13:23 09/28/17 13:35 (NS Flush) 2 ml UNSCH PRN IV FLUSH 09/26/17 13:30 (NS Flush) 2 ml BID IV FLUSH 09/26/17 21:00 09/28/17 22:08 (Zofran Inj) 4 mg Q6H PRN IVP 09/26/17 14:00 (Ultram) 50 mg Q4H PRN PO 09/26/17 14:00 (Ultram) 100 mg Q4H PRN PO 09/26/17 14:00 (Narcan Inj) 0.4 mg UNSCH PRN IV PUSH 09/26/17 13:30 (Milk Of Magnesia Liq) 30 ml Q12HR PRN PO 09/26/17 14:00 (D50w (Vial) Inj) 50 ml UNSCH PRN IV PUSH 09/26/17 16:00 (Glucagon Inj) 1 mg UNSCH PRN OTHER 09/26/17 16:00 (NovoLOG SUPPLEMENTAL SCALE) 1 ACHS SLIDING SCALE SQ 09/26/17 17:00 09/28/17 22:04 (Lanoxin) 0.125 mg DAILY PO 09/28/17 09:00 09/28/17 09:00 (Cardizem) 30 mg Q6HR PO 09/27/17 18:00 09/29/17 00:17 (Lovenox Inj) 80 mg Q12H SQ 09/28/17 10:00 09/28/17 22:01 Lactated Ringer's 1,000 ml @ 30 mls/hr Q24H PRN IV 09/29/17 06:45 10/02/17 06:44 Sodium Chloride 500 ml @ 30 mls/hr [id number] PRN IV 09/29/17 06:45 3/18/18 06:44 (Betadine 5% Antisepsis Kit) 1 applic BRAID FOLDER PRN EACH NARE 09/29/17 06:45 10/02/17 06:44 (Chlorhexidine 2% Cloth) 3 pack BRAID FOLDER PRN TOPICAL 09/29/17 06:45 10/02/17 06:44 Vital Signs / I&O Vital Signs Date Time Temp Pulse Resp B/P (MAP) Pulse Ox O2 Delivery O2 Flow Rate FiO2 09/29/17 05:33 97.9 132 14 133/85 (101) 95 09/29/17 02:00 118 19 119/83 (95) 09/29/17 01:00 132 20 144/81 (102) 09/29/17 00:20 98.0 120 19 133/80 (97) 09/28/17 23:00 90 09/28/17 23:00 92 18 116/62 (80) 09/28/17 22:28 136 22 117/73 (88) 09/28/17 22:22 136 09/28/17 20:00 136 09/28/17 19:19 98.0 136 23 141/74 (96) 95 09/28/17 19:00 136 26 09/28/17 16:00 98.0 138 11 116/83 (94) 09/28/17 12:08 136 19 129/89 (102) 09/28/17 12:00 136 28 09/28/17 10:00 134 22 09/28/17 09:00 132 18 09/28/17 08:00 130 131/73 (92) 09/28/17 08:00 90 I/O 09/28/17 09/28/17 09/28/17 09/29/17 09/29/17 09/29/17 07:00 15:00 23:00 07:00 15:00 23:00 Intake Total 2200 ml 400 ml 2000 ml Output Total 1350 ml 1900 ml Balance 850 ml -1500 ml 2000 ml Intake Oral 200 ml 400 ml IV Total 2000 ml 2000 ml Output Urine Total 1350 ml 1900 ml # Voids 1 2 # Bowel Movements 0 0 Physical Exam GENERAL: SKIN: Warm and dry. HEAD: Normocephalic. EYES: No scleral icterus. No injection or drainage. NECK: Supple, trachea midline. No JVD or lymphadenopathy. CARDIOVASCULAR: IR IR tachy. RESPIRATORY: Breath sounds equal bilaterally. No accessory muscle use. GASTROINTESTINAL: Abdomen soft, non-tender, nondistended. MUSCULOSKELETAL: No cyanosis, or edema. BACK: Nontender without obvious deformity. No CVA tenderness. Laboratory Laboratory Tests Test 09/29/17 06:15 White Blood Count 8.8 TH/MM3 Red Blood Count 4.38 MIL/MM3 Hemoglobin 14.6 GM/DL Hematocrit 41.7 % Mean Corpuscular Volume 95.3 FL Mean Corpuscular Hemoglobin 33.3 PG Mean Corpuscular Hemoglobin Concent 34.9 % Red Cell Distribution Width 14.3 % Platelet Count 195 TH/MM3 Mean Platelet Volume 8.3 FL Neutrophils (%) (Auto) 73.4 % Lymphocytes (%) (Auto) 16.8 % Monocytes (%) (Auto) 7.6 % Eosinophils (%) (Auto) 1.6 % Basophils (%) (Auto) 0.6 % Neutrophils # (Auto) 6.5 TH/MM3 Lymphocytes # (Auto) 1.5 TH/MM3 Monocytes # (Auto) 0.7 TH/MM3 Eosinophils # (Auto) 0.1 TH/MM3 Basophils # (Auto) 0.1 TH/MM3 CBC Comment DIFF FINAL Differential Comment Prothrombin Time 10.9 SEC Prothromb Time International Ratio 1.1 RATIO Activated Partial Thromboplast Time 30.8 SEC Blood Urea Nitrogen 16 MG/DL Creatinine 1.22 MG/DL Random Glucose 148 MG/DL Total Protein 7.1 GM/DL Albumin 3.7 GM/DL Calcium Level 9.3 MG/DL Alkaline Phosphatase 65 U/L Aspartate Amino Transf (AST/SGOT) 22 U/L Alanine Aminotransferase (ALT/SGPT) 25 U/L Total Bilirubin 0.8 MG/DL Sodium Level 134 MEQ/L Potassium Level 4.2 MEQ/L Chloride Level 101 MEQ/L Carbon Dioxide Level 23.1 MEQ/L Anion Gap 10 MEQ/L Estimat Glomerular Filtration Rate 59 ML/MIN Assessment and Plan Assessment and Plan symptomatic afib 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
[2017-09-29] MEDS: AMIODARONE INJ 450 MG in SODIUM CHLOR 0.9% (EXCEL) INJ 241 ML IV SCH ×2 (08:11→18:49)
[2017-09-29] MEDS ORDERED: AMIODARONE INJ 450 MG in DEXTROSE 5% IN WATE(EXCEL) INJ 241 ML IV SCH ×2 (08:11)
[2017-09-29] MEDS: SODIUM CHLORIDE 0.9% FLUSH 10 ML FLUSH IV FLUSH SCH ×2 (08:23→23:39)
[2017-09-29] MEDS ORDERED: REGADENOSON INJ 0.4 MG/5 ML SYR ONE (11:22)
--- NOTE | 2017-09-29 12:40 | ECHRPT ---
Indication: CONCLUSIONS Mild concentric left ventricular hypertrophy. The left ventricular systolic function is low normal with an estimated ejection fraction in the rang e of 50- 55%. The left atrial size is normal. Normal left atrial appendage size with no evidence of thrombus formation. There is mild tricuspid valve regurgitation. Mild mitral valve regurgitation. BP: / HR: Rhythm: MEASUREMENTS (Male / Female) Normal Values Technical Quality: DOPPLER TR Peak Velocity 223.0 cm/s TR Peak Gradient 19.9 mmHg Medications Complications Proc. Components Direct current cardioversion x 1 with 200J to normal sinus rhythm FINDINGS LEFT VENTRICLE Mild concentric left ventricular hypertrophy. The left ventricular systolic function is low normal with an estimated ejection fraction in the rang e of 50- 55%. RIGHT VENTRICLE Normal right ventricular size and systolic function. LEFT ATRIUM The left atrial size is normal. RIGHT ATRIUM The right atrial size is normal. ATRIAL APPENDAGES Normal left atrial appendage size with no evidence of thrombus formation. ATRIAL SEPTUM Normal atrial septal thickness without atrial level shunting by limited color doppler interrogation. AORTA The aortic root and proximal ascending aorta are normal in size on limited imaging. MITRAL VALVE Structurally normal mitral valve. No mitral valve stenosis Mild mitral valve regurgitation. AORTIC VALVE Trileaflet aortic valve. No aortic valve stenosis or regurgitation. TRICUSPID VALVE There is mild tricuspid valve regurgitation. VESSELS The inferior vena cava is normal in size. PULMONARY VALVE The pulmonary valve is not well visualized. PERICADIUM No pericardial effusion. Femi Cai MD, FACC (Electronically Signed) Final Date:29 September 2017 12:39
--- NOTE | 2017-09-29 13:13 | RADRPT ---
EXAM DATE/TIME: 09/29/2017 11:13 [place] COMPARISON: No previous studies available for comparison. INDICATIONS : Lightheaded with shortness of breath for one day. Abnormal EKG. Congestive heart failure. DOSE: 27.1 mCi Tc99m Myoview at stress. 8.5 mCi Tc99m Myoview at rest. 0.4 mg Lexiscan STRESS SYMPTOMS: Weird feeling. EJECTION FRACTION: 67% MEDICAL HISTORY : Diabetes mellitus type 2. Renal failure, chronic. SURGICAL HISTORY : Appendectomy. Cholecystectomy. ENCOUNTER: Initial ACUITY: 1 day PAIN SCALE: 0/10 LOCATION: chest TECHNIQUE: The patient underwent pharmacologic stress with infusion of prescribed dose. Continuous ECG tracing was monitored during stress. Gated SPECT imaging was performed after stress and conventional SPECT i maging was performed at rest. The examination was performed on a SPECT/CT scanner, both attenuation and non-corrected datasets were reviewed. FINDINGS: DISTRIBUTION: The maximum perfused segment at stress is in the septal wall. PERFUSION STUDY: The pattern of perfusion at stress is within normal limits. GATED STUDY: There is intact wall motion and thickening without hypokinetic or dyskinetic segments. CONCLUSION: 1. No reversible perfusion defect to suggest stress-induced myocardial ischemia. RISK CATEGORY: Low (<1% Annual Mortality Rate) Mendez Rudolph MD on September 29, 2017 at 13:10 Board Certified Radiologist. This report was verified electronically.
[2017-09-29] MEDS: INSULIN ASPART SUPPLEMENTAL SCALE SQ SCH ×3 (13:35→21:00)
[2017-09-29] MEDS: SODIUM CHLOR 0.9% 1000 ML INJ 1,000 ML IV SCH ×2 (13:41→14:00)
--- NOTE | 2017-09-29 13:53 | EKG ---
Date Performed: 09/29/2017 Time Performed: 08:09:02 PTAGE: 67 years EKG: Sinus rhythm . Possible inferior infarct - age undetermined Compared to previous tracing the atrial flutter has re solved Abnormal ECG PREVIOUS TRACING : 09/26/2017 10.28 DOCTOR: Petra Kumar Interpretating Date/Time 09/29/2017 13:50:39
[2017-09-29] MEDS ORDERED: ENOXAPARIN SODIUM 80 MG/0.8 ML SYRINGE SQ SCH (14:00)
--- NOTE | 2017-09-29 18:25 | HHI.PR ---
Subjective Remarks Patient was transfered to [facility] this morning prior to 7am. He underwent an attempted cardioversion. Amiodarone has been started. Hyperglycemia in PM, diet changed to Diabetic Diet with Low salt. Objective Vitals Vital Signs Date Time Temp Pulse Resp B/P (MAP) Pulse Ox O2 Delivery O2 Flow Rate FiO2 09/29/17 15:00 98.6 86 18 130/68 (88) 96 09/29/17 14:20 88 128/69 09/29/17 12:45 98.2 88 18 128/69 (88) 97 09/29/17 08:11 82 116/74 09/29/17 05:33 97.9 132 14 133/85 (101) 95 09/29/17 02:00 118 19 119/83 (95) 09/29/17 01:00 132 20 144/81 (102) 09/29/17 00:20 98.0 120 19 133/80 (97) 09/28/17 23:00 90 09/28/17 23:00 92 18 116/62 (80) 09/28/17 22:28 136 22 117/73 (88) 09/28/17 22:22 136 09/28/17 20:00 136 09/28/17 19:19 98.0 136 23 141/74 (96) 95 09/28/17 19:00 136 26 I/O 09/28/17 09/28/17 09/28/17 09/29/17 09/29/17 09/29/17 07:00 15:00 23:00 07:00 15:00 23:00 Intake Total 2200 ml 400 ml 2000 ml Output Total 1350 ml 1900 ml Balance 850 ml -1500 ml 2000 ml Intake Oral 200 ml 400 ml IV Total 2000 ml 2000 ml Output Urine Total 1350 ml 1900 ml # Voids 1 2 # Bowel Movements 0 0 Result Diagram: 09/29/17 0615 09/29/17 0615 A/P Problem List: (1) Diabetes 1.5, 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 Atrial flutter RVR Cardioversion attempted today, no benefit Now on Amiodarone Cardiology following Follow on telemetry Echocardiogram shows an EF of 35-40%. Diabetes mellitus type 2/1.5 Follow blood sugars Insulin sliding scale Diabetic diet DVT prophylaxis Mendez Phoenix MD Sep 29, 2017 18:25
[2017-09-29] MEDS ORDERED: INSULIN ASPART 1,000 UNITS/10 ML VIAL SQ ONE (20:00)
[2017-09-29] MEDS ORDERED: INSULIN DETEMIR 100 UNITS/ML VIAL SQ SCH (21:00)
[2017-09-29] MEDS: ENOXAPARIN SODIUM 80 MG/0.8 ML SYRINGE SQ SCH (23:37)
[2017-09-30] VITALS: BP 128/67; PULSE 78; RESP 18; TEMP 98.4; O2SAT 97
[2017-09-30 01:00] VITALS: PULSE 75
[2017-09-30] MEDS: SODIUM CHLOR 0.9% 1000 ML INJ 1,000 ML IV SCH (01:44)
[2017-09-30] MEDS: DILTIAZEM HCL 60 MG TAB PO SCH ×2 (05:04)
[2017-09-30 05:08] VITALS: BP 125/55; PULSE 78; RESP 18; TEMP 98.6; O2SAT 97
[2017-09-30 07:00] VITALS: BP 148/92; PULSE 75; RESP 18; TEMP 98.4; O2SAT 96
[2017-09-30 08:00] VITALS: PULSE 75
[2017-09-30] MEDS: INSULIN ASPART SUPPLEMENTAL SCALE SQ SCH ×2 (08:00→12:36)
--- NOTE | 2017-09-30 08:36 | PD.CARD.PN ---
Subjective Subjective Remarks Remains NSR overnight. No chest pain, shortness breath, palpitations. Objective Medications Current Medications Medications (Trade) Dose Ordered Sig/Chantelle Route Start Time Stop Time Status Last Admin (NS Flush) 2 ml UNSCH PRN IV FLUSH 09/26/17 11:00 Diltiazem HCl 125 mg/Sodium Chloride 125 ml @ 5 mls/hr TITRATE PRN IV 09/26/17 13:15 09/26/17 21:30 Sodium Chloride 1,000 ml @ 83 mls/hr Q12H3M IV 09/26/17 13:23 09/29/17 14:00 (NS Flush) 2 ml UNSCH PRN IV FLUSH 09/26/17 13:30 (NS Flush) 2 ml BID IV FLUSH 09/26/17 21:00 09/29/17 23:39 (Zofran Inj) 4 mg Q6H PRN IVP 09/26/17 14:00 (Ultram) 50 mg Q4H PRN PO 09/26/17 14:00 (Ultram) 100 mg Q4H PRN PO 09/26/17 14:00 (Narcan Inj) 0.4 mg UNSCH PRN IV PUSH 09/26/17 13:30 (Milk Of Magnesia Liq) 30 ml Q12HR PRN PO 09/26/17 14:00 (D50w (Vial) Inj) 50 ml UNSCH PRN IV PUSH 09/26/17 16:00 (Glucagon Inj) 1 mg UNSCH PRN OTHER 09/26/17 16:00 (NovoLOG SUPPLEMENTAL SCALE) 1 ACHS SLIDING SCALE SQ 09/26/17 17:00 09/29/17 13:35 (Cardizem) 30 mg Q6HR PO 09/27/17 18:00 09/30/17 05:04 Lactated Ringer's 1,000 ml @ 30 mls/hr Q24H PRN IV 09/29/17 06:45 10/02/17 06:44 Sodium Chloride 500 ml @ 30 mls/hr [id number] PRN IV 09/29/17 06:45 10/02/17 06:44 (Betadine 5% Antisepsis Kit) 1 applic MAIL MANAGER PRN EACH NARE 09/29/17 06:45 10/02/17 06:44 (Chlorhexidine 2% Cloth) 3 pack MAIL MANAGER PRN TOPICAL 09/29/17 06:45 10/02/17 06:44 Miscellaneous Information 1 UNSCH PRN XX 09/29/17 08:00 10/02/17 07:59 (NS Flush) 2 ml UNSCH PRN IVF 09/29/17 08:00 Amiodarone HCl 450 mg/Sodium Chloride 250 ml @ 33 mls/hr Q7H35M IV 09/29/17 08:11 09/29/17 18:49 (Lovenox Inj) 80 mg Q12H SQ 09/29/17 22:00 09/29/17 23:37 (Levemir Inj) 40 units HS SQ 09/29/17 21:00 09/29/17 21:00 Vital Signs / I&O Vital Signs Date Time Temp Pulse Resp B/P (MAP) Pulse Ox O2 Delivery O2 Flow Rate FiO2 09/30/17 05:08 98.6 78 18 125/55 (78) 97 09/30/17 01:00 75 09/30/17 00:00 98.4 78 18 128/67 (87) 97 09/30/17 00:00 78 09/29/17 23:00 78 09/29/17 22:00 82 09/29/17 21:00 80 09/29/17 20:00 98.4 85 18 138/70 (92) 97 09/29/17 20:00 88 09/29/17 19:00 86 09/29/17 18:49 84 115/54 09/29/17 18:00 86 09/29/17 17:00 80 09/29/17 16:00 80 09/29/17 15:00 98.6 86 18 130/68 (88) 96 09/29/17 15:00 87 09/29/17 14:20 88 128/69 09/29/17 14:00 86 09/29/17 13:00 88 09/29/17 12:45 98.2 88 18 128/69 (88) 97 I/O 09/29/17 09/29/17 09/29/17 09/30/17 09/30/17 09/30/17 07:00 15:00 23:00 07:00 15:00 23:00 Intake Total 2000 ml 1100 ml 240 ml Output Total 500 ml 300 ml Balance 2000 ml 600 ml -60 ml Intake Oral 1100 ml 240 ml IV Total 2000 ml Output Urine Total 500 ml 300 ml # Bowel Movements 0 Physical Exam GENERAL: Well-developed well-nourished. In no acute distress. NECK: No carotid bruits. No JVD. CARDIOVASCULAR: Regular rate and rhythm. No murmur appreciated. RESPIRATORY: No accessory muscle use. Clear to auscultation. Breath sounds equal bilaterally. MUSCULOSKELETAL: No clubbing or cyanosis. No edema. NEUROLOGICAL: Awake and alert. Normal speech. Imaging Last Impressions Myocardial Perfusion Scan Nuc Med 09/29/17 0000 Signed Impressions: Service Date/Time: , September 29, 2017 11:13 - CONCLUSION: 1. No reversible perfusion defect to suggest stress-induced myocardial ischemia. RISK CATEGORY: Low (<1%% Annual Mortality Rate) Mendez Rudolph MD Assessment and Plan Assessment and Plan 67-year-old male with a past medical history of DM, HLD, HTN, CKD 3 who presented for new onset atrial flutter. The patient went to his routine every 3 month PCP visit and the pulse ox showed his heart rate was 150. An EKG showed atrial flutter with RVR. The patient has been completely asymptomatic. New-onset atrial flutter with RVR: Rate controlled with medications, performed YESENIA and DCC 09/29 with conversion to NSR. Loaded with amiodarone gtt., change to oral today. Continue Cardizem. Chadsvasc 3 for age, diabetes, and hypertension, recommend anticoagulation. Cardiomyopathy: EF 35-40%. New-onset, suspect rate related. No clinical signs of CHF. Lexiscan nonischemic. Patient is clear for discharge and outpatient follow-up from a cardiology perspective today. We'll sign off at this time. Please call with any further questions. Cory Montesinos Sep 30, 2017 08:35
[2017-09-30] MEDS ORDERED: AMIODARONE 200 MG TAB PO SCH (09:00)
[2017-09-30] MEDS ORDERED: DILTIAZEM-CD 120 MG CAP ER PO SCH (09:00)
[2017-09-30] MEDS: SODIUM CHLORIDE 0.9% FLUSH 10 ML FLUSH IV FLUSH SCH (09:00)
[2017-09-30] MEDS: ENOXAPARIN SODIUM 80 MG/0.8 ML SYRINGE SQ SCH (09:19)
[2017-09-30 11:00] VITALS: BP 148/82; PULSE 69; RESP 18; TEMP 97.6; O2SAT 97
--- NOTE | 2017-09-30 12:34 | HHI.PR ---
Subjective Remarks This is a pleasant 67 y/o male with DM II, Hyperlipidemia, Hyeprtension, CKD III , who came to ER with new onset of Atrial Fibrillation/atrial Flutter with RVR, Performed YESENIA and DCC 09/29 with conversion to NSR, Loaded with Amiodarone, changed to Oral, continue Cardizem, CHADS2-VASC score 3 for age, DM and Hypertension recommended for anticoagulation, Cardiomyopathy: EF 35-40%. New-onset, suspect rate related. No clinical signs of CHF. Lexiscan nonischemic. Patient is clear for discharge and outpatient follow-up from a cardiology perspective today. Cardiology singed off the case. Seen in his bedroom, no nausea vomit or diarrhea. Objective Vital Signs Date Time Temp Pulse Resp B/P (MAP) Pulse Ox O2 Delivery O2 Flow Rate FiO2 09/30/17 08:00 75 09/30/17 07:00 98.4 75 18 148/92 (110) 96 09/30/17 05:08 98.6 78 18 125/55 (78) 97 09/30/17 01:00 75 09/30/17 00:00 98.4 78 18 128/67 (87) 97 09/30/17 00:00 78 09/29/17 23:00 78 09/29/17 22:00 82 09/29/17 21:00 80 09/29/17 20:00 98.4 85 18 138/70 (92) 97 09/29/17 20:00 88 09/29/17 19:00 86 09/29/17 18:49 84 115/54 09/29/17 18:00 86 09/29/17 17:00 80 09/29/17 16:00 80 09/29/17 15:00 98.6 86 18 130/68 (88) 96 09/29/17 15:00 87 09/29/17 14:20 88 128/69 09/29/17 14:00 86 09/29/17 13:00 88 09/29/17 12:45 98.2 88 18 128/69 (88) 97 I/O 09/29/17 09/29/17 09/29/17 09/30/17 09/30/17 09/30/17 07:00 15:00 23:00 07:00 15:00 23:00 Intake Total 2000 ml 1100 ml 240 ml Output Total 500 ml 300 ml Balance 2000 ml 600 ml -60 ml Intake Oral 1100 ml 240 ml IV Total 2000 ml Output Urine Total 500 ml 300 ml # Bowel Movements 0 Result Diagram: 09/29/17 0615 09/29/17 0615 Imaging Last Impressions Myocardial Perfusion Scan Nuc Med 09/29/17 0000 Signed Impressions: Service Date/Time: September 11:13 - CONCLUSION: 1. No reversible perfusion defect to suggest stress-induced myocardial ischemia. RISK CATEGORY: Low (<1%% Annual Mortality Rate) Mendez Rudolph MD Procedures YESENIA with Cardioversion. Other Results Laboratory Tests Test 09/26/17 10:45 09/26/17 22:30 09/28/17 05:10 09/29/17 06:15 Total Creatine Kinase 68 U/L Troponin I LESS THAN 0.02 NG/ML Digoxin Level 1.4 NG/ML White Blood Count 8.8 TH/MM3 Red Blood Count 4.38 MIL/MM3 Hemoglobin 14.6 GM/DL Hematocrit 41.7 % Mean Corpuscular Volume 95.3 FL Mean Corpuscular Hemoglobin 33.3 PG Mean Corpuscular Hemoglobin Concent 34.9 % Red Cell Distribution Width 14.3 % Platelet Count 195 TH/MM3 Mean Platelet Volume 8.3 FL Neutrophils (%) (Auto) 73.4 % Lymphocytes (%) (Auto) 16.8 % Monocytes (%) (Auto) 7.6 % Eosinophils (%) (Auto) 1.6 % Basophils (%) (Auto) 0.6 % Neutrophils # (Auto) 6.5 TH/MM3 Lymphocytes # (Auto) 1.5 TH/MM3 Monocytes # (Auto) 0.7 TH/MM3 Eosinophils # (Auto) 0.1 TH/MM3 Basophils # (Auto) 0.1 TH/MM3 CBC Comment DIFF FINAL Differential Comment Prothrombin Time 10.9 SEC Prothromb Time International Ratio 1.1 RATIO Activated Partial Thromboplast Time 30.8 SEC Blood Urea Nitrogen 16 MG/DL Creatinine 1.22 MG/DL Random Glucose 148 MG/DL Total Protein 7.1 GM/DL Albumin 3.7 GM/DL Calcium Level 9.3 MG/DL Alkaline Phosphatase 65 U/L Aspartate Amino Transf (AST/SGOT) 22 U/L Alanine Aminotransferase (ALT/SGPT) 25 U/L Total Bilirubin 0.8 MG/DL Sodium Level 134 MEQ/L Potassium Level 4.2 MEQ/L Chloride Level 101 MEQ/L Carbon Dioxide Level 23.1 MEQ/L Anion Gap 10 MEQ/L Estimat Glomerular Filtration Rate 59 ML/MIN Objective Remarks GENERAL: Well-developed well-nourished. In no acute distress. NECK: No carotid bruits. No JVD. CARDIOVASCULAR: Regular rate and rhythm. No murmur appreciated. RESPIRATORY: No accessory muscle use. Clear to auscultation. Breath sounds equal bilaterally. MUSCULOSKELETAL: No clubbing or cyanosis. No edema. NEUROLOGICAL: Awake and alert. Normal speech. Medications and IVs Current Medications Medications (Trade) Dose Ordered Sig/Chantelle Route Start Time Stop Time Status Last Admin (NS Flush) 2 ml UNSCH PRN IV FLUSH 09/26/17 11:00 Diltiazem HCl 125 mg/Sodium Chloride 125 ml @ 5 mls/hr TITRATE PRN IV 09/26/17 13:15 09/26/17 21:30 Sodium Chloride 1,000 ml @ 83 mls/hr Q12H3M IV 09/26/17 13:23 09/29/17 13:41 (NS Flush) 2 ml UNSCH PRN IV FLUSH 09/26/17 13:30 (NS Flush) 2 ml BID IV FLUSH 09/26/17 21:00 09/30/17 09:00 (Zofran Inj) 4 mg Q6H PRN IVP 09/26/17 14:00 (Ultram) 50 mg Q4H PRN PO 09/26/17 14:00 (Ultram) 100 mg Q4H PRN PO 09/26/17 14:00 (Narcan Inj) 0.4 mg UNSCH PRN IV PUSH 09/26/17 13:30 (Milk Of Magnesia Liq) 30 ml Q12HR PRN PO 09/26/17 14:00 (D50w (Vial) Inj) 50 ml UNSCH PRN IV PUSH 09/26/17 16:00 (Glucagon Inj) 1 mg UNSCH PRN OTHER 09/26/17 16:00 (NovoLOG SUPPLEMENTAL SCALE) 1 ACHS SLIDING SCALE SQ 09/26/17 17:00 09/29/17 13:35 Lactated Ringer's 1,000 ml @ 30 mls/hr Q24H PRN IV 09/29/17 06:45 10/02/17 06:44 Sodium Chloride 500 ml @ 30 mls/hr [id number] PRN IV 09/29/17 06:45 10/02/17 06:44 (Betadine 5% Antisepsis Kit) 1 applic SENIOR COMPENSATION CONSULTANT PRN EACH NARE 09/29/17 06:45 10/02/17 06:44 (Chlorhexidine 2% Cloth) 3 pack SENIOR COMPENSATION CONSULTANT PRN TOPICAL 09/29/17 06:45 10/02/17 06:44 Miscellaneous Information 1 UNSCH PRN XX 09/29/17 08:00 10/02/17 07:59 (NS Flush) 2 ml UNSCH PRN IVF 09/29/17 08:00 (Lovenox Inj) 80 mg Q12H SQ 09/29/17 22:00 09/30/17 09:19 (Levemir Inj) 40 units HS SQ 09/29/17 21:00 09/29/17 21:00 (Cardizem Cd) 120 mg DAILY PO 09/30/17 09:00 09/30/17 09:18 (Cordarone) 200 mg DAILY PO 09/30/17 09:00 09/30/17 09:18 A/P Assessment and Plan (1) Diabetes 1.5, managed as type 1 ICD Code: E10.9 - Type 1 diabetes mellitus without complications Status: Acute (2) New onset atrial flutter ICD Code: I48.92 - Unspecified atrial flutter Status: Acute (3) Atrial flutter with rapid ventricular response ICD Code: I48.92 - Unspecified atrial flutter Status: Acute Assessment and Plan 67-year-old male admitted secondary to a flutter with RVR Transfer to [facility] overnight for cardioversion procedure. Atrial flutter RVR Performed YESENIA and DCC 09/29 with conversion to NSR, Loaded with Amiodarone, changed to Oral, continue Cardizem, CHADS2-VASC score 3 for age, DM and Hypertension recommended for anticoagulation, Cardiomyopathy: EF 35-40%. New-onset, suspect rate related. No clinical signs of CHF. Lexiscan nonischemic. Patient is clear for discharge and outpatient follow-up from a cardiology perspective today. Cardiology singed off the case. Echocardiogram shows an EF of 35-40%. Discussed with doctor Trell laraay to be discharged on Eliquis Diabetes mellitus type 2/1.5 Follow blood sugars Insulin sliding scale Diabetic diet Hypertension controlled Hyperlipidemia to continue statins DVT prophylaxis Lovenox Discharge Planning Discharge Home today. Teto Hagan MD Sep 30, 2017 12:34
[2017-09-30] MEDS ORDERED: METF500T PO (12:44)
[2017-09-30] MEDS ORDERED: AMIO200T PO (12:44)
[2017-09-30] MEDS ORDERED: DILT120C50 PO (12:44)
[2017-09-30] MEDS ORDERED: APIX5TAB PO (12:53)
--- NOTE | 2017-09-30 12:55 | HHI.DS ---
Discharge Summary Admission Date Sep 26, 2017 at 13:52 Discharge Date: Sep 30, 2017 Admitting Diagnosis new onset aflutter with RVR (1) Diabetes 1.5, managed as type 1 ICD Code: E10.9 - Type 1 diabetes mellitus without complications Diagnosis: Secondary Status: Acute (2) New onset atrial flutter ICD Code: I48.92 - Unspecified atrial flutter Diagnosis: Principal Status: Acute (3) Atrial flutter with rapid ventricular response ICD Code: I48.92 - Unspecified atrial flutter Diagnosis: Principal Status: Acute Procedures YESENIA with Cardioversion. Brief History - From Admission Mr. Pichardo is a 67-year-old male. He has not had any symptoms of was sent here by his primary care doctor after being found to have a heart rate of 150. EKG was done in the office and he was seen to be in atrial flutter. ER evaluation confirms heart rate in the 150s in atrial flutter. He has been given diltiazem bolus which dropped his heart rate down to the 130s. She is currently on IV diltiazem drip and continues to have heart rate in the 130s when seen. At baseline he has diabetes mellitus type 2. He has no prior history or known history of atrial fibrillation or atrial flutter. No other medical conditions. No fevers or illness. No exposure to stimulants such as excessive caffeine or cocaine. No heavy drinking. CBC/BMP: 09/29/17 0615 09/29/17 0615 Significant Findings Laboratory Tests Test 09/28/17 05:10 09/29/17 06:15 Red Blood Count 3.89 MIL/MM3 (4.50-5.90) 4.38 MIL/MM3 (4.50-5.90) Hematocrit 37.2 % (39.0-51.0) Neutrophils (%) (Auto) 73.0 % (16.0-70.0) 73.4 % (16.0-70.0) Blood Urea Nitrogen 19 MG/DL (7-18) Random Glucose 153 MG/DL (74-106) 148 MG/DL (74-106) Albumin 3.0 GM/DL (3.4-5.0) Calcium Level 8.0 MG/DL (8.5-10.1) Estimat Glomerular Filtration Rate 55 ML/MIN (>89) 59 ML/MIN (>89) Activated Partial Thromboplast Time 30.8 SEC (24.3-30.1) Sodium Level 134 MEQ/L (136-145) Imaging Last Impressions Myocardial Perfusion Scan [facility] Med 09/29/17 0000 Signed Impressions: Service Date/Time: September 11:13 - CONCLUSION: 1. No reversible perfusion defect to suggest stress-induced myocardial ischemia. RISK CATEGORY: Low (<1%% Annual Mortality Rate) Mendez Rudolph MD PE at Discharge GENERAL: Well-developed well-nourished. In no acute distress. NECK: No carotid bruits. No JVD. CARDIOVASCULAR: Regular rate and rhythm. No murmur appreciated. RESPIRATORY: No accessory muscle use. Clear to auscultation. Breath sounds equal bilaterally. MUSCULOSKELETAL: No clubbing or cyanosis. No edema. NEUROLOGICAL: Awake and alert. Normal speech. Hospital Course This is a pleasant 67 y/o male with DM II, Hyperlipidemia, Hyeprtension, CKD III , who came to ER with new onset of Atrial Fibrillation/atrial Flutter with RVR, Performed YESENIA and DCC 09/29 with conversion to NSR, Loaded with Amiodarone, changed to Oral, continue Cardizem, CHADS2-VASC score 3 for age, DM and Hypertension recommended for anticoagulation, Cardiomyopathy: EF 35-40%. New-onset, suspect rate related. No clinical signs of CHF. Lexiscan nonischemic. Patient is clear for discharge and outpatient follow-up from a cardiology perspective today. Cardiology singed off the case. Seen in his bedroom, no nausea vomit or diarrhea. Assessment and Plan (1) Diabetes 1.5, managed as type 1 ICD Code: E10.9 - Type 1 diabetes mellitus without complications Status: Acute (2) New onset atrial flutter ICD Code: I48.92 - Unspecified atrial flutter Status: Acute (3) Atrial flutter with rapid ventricular response ICD Code: I48.92 - Unspecified atrial flutter Status: Acute Assessment and Plan 67-year-old male admitted secondary to a flutter with RVR [place] [facility] [place] for cardio[place] procedure. Atrial flutter RVR Performed YESENIA and DCC 09/29 with conversion to NSR, Loaded with Amiodarone, changed to Oral, continue Cardizem, CHADS2-VASC score 3 for age, DM and Hypertension recommended for anticoagulation, Cardiomyopathy: EF 35-40%. New-onset, suspect rate related. No clinical signs of CHF. Lexiscan nonischemic. Patient is clear for discharge and outpatient follow-up from a cardiology perspective today. Cardiology singed off the case. Echocardiogram shows an EF of 35-40%. Discussed with doctor Trell ruiz to be discharged on Eliquis Diabetes mellitus type 2/1.5 Follow blood sugars Insulin sliding scale Diabetic diet Hypertension controlled Hyperlipidemia to continue statins DVT prophylaxis Lovenox Discharge Planning Discharge Home today. Pt Condition on Discharge: Good Discharge Disposition: Discharge Home Discharge Time: > 30 minutes Discharge Instructions DIET: Follow Instructions for: Heart Healthy Diet, Diabetic Diet Activities you can perform: Regular-No Restrictions Teto Hagan MD Sep 30, 2017 12:55
[2017-09-30] MEDS ORDERED: APIXABAN 5 MG TABLET PO SCH (21:00)
== END 2017-09-30 14:33 | disposition home or self-care (01) | DRG 310 ==
LOC: PHED 10:26 → PHEDA 13:52 → PHICU 17:40 → HCIS 09-29 06:20
PROVIDERS: ADMIT Internal Medicine; ATTEND Internal Medicine
PROC: 5A2204Z Restoration of Cardiac Rhythm, Single (ICD-10-PCS; principal; 2017-09-29)
PROC: B246ZZ4 Ultrasonography of Right and Left Heart, Transesophageal (ICD-10-PCS; 2017-09-29)
DX: I48.92 Unspecified atrial flutter (principal); I42.9 Cardiomyopathy, unspecified; E10.22 Type 1 diabetes mellitus with diabetic chronic kidney disease; N18.3 Chronic kidney disease, stage 3 (moderate); E10.65 Type 1 diabetes mellitus with hyperglycemia; I48.91 Unspecified atrial fibrillation; I12.9 Hypertensive chronic kidney disease with stage 1 through stage 4 chronic kidney disease, or unspecified chronic kidney disease; E78.5 Hyperlipidemia, unspecified; Z79.4 Long term (current) use of insulin; Z79.82 Long term (current) use of aspirin
CPT/HCPCS: 78452; 80048; 80053; 80162; 82550; 82948; 84484; 85025; 85610; 85730; 92960; 93005; 93017; 93306; 93312; 93320; 93325; 96374; 96376; A9502; J0282; J1160; J1650; J1815; J2785; J7030; J7050